=== PATIENT | female | born 1940 | race Caucasian/White ===

== ENCOUNTER → 2017-12-19 13:07 | Outpatient (CLI) | payer OTHER, SELFPAY ==
--- NOTE | 2017-12-19 | DI.MG.S_ITS ---
BILATERAL DIGITAL SCREENING MAMMOGRAM 3D/2D WITH CAD: 12/19/2017 CLINICAL: Routine screening. Family history of breast cancer. Comparison is made to exams dated: 12/12/2016 mammogram, 12/07/2015 mammogram, and 12/05/2014 mammogram - [facility]. There are scattered fibroglandular elements in both breasts. Current study was also evaluated with a Computer Aided Detection (CAD) system. No significant masses, calcifications, or other findings are seen in either breast. There has been no significant interval change. IMPRESSION: NEGATIVE There is no mammographic evidence of malignancy. A 1 year screening mammogram is recommended. This exam was interpreted at Station ID: [id number]. NOTE: For mammograms, a report in lay terms will be sent to the patient. Approximately 15% of breast malignancies will not be visualized mammographically. In the management of a palpable breast mass, a negative mammogram must not discourage biopsy of a clinically suspicious lesion. Electronically Signed By: Denae temple/mariana:12/19/2017 16:10:03 letter sent: Normal Exam ACR BI-RADS Category 1: Negative 3341F
== END ==
PROVIDERS: Family Provider Family Medicine; PCP Family Medicine; Visit Provider Family Medicine
DX: Z12.31 Encounter for screening mammogram for malignant neoplasm of breast (principal); Z80.3 Family history of malignant neoplasm of breast
CPT/HCPCS: 77063; 77067

== ENCOUNTER → 2018-02-25 09:15 | Outpatient (CLI) | payer OTHER, SELFPAY ==
[2018-02-25 09:57] LABS: Add Manual Diff / Slide Review NO; Basophils Percent Auto 1.2 % (0-2); Eosinophils Percent Auto 2.1 % (2-4); Hematocrit 44.9 % (36-46); Hemoglobin 15.1 g/dL (12.0-16.0); Lymphocytes Percent Auto 26.4 % (25-40); Mean Corpuscular HGB Conc 33.7 % (30-36); Mean Corpuscular Hemoglobin 31.9 PG (26-34); Mean Corpuscular Volume 94.7 fL (80-100); Monocytes Percent Auto 12.2 % (3-14); Neutrophils Absolute Auto 3300 /uL (3000-5900); Neutrophils Percent Auto 58.1 % (50-75); Platelet Count 175 X10^3/uL (150-400); Red Blood Cell Count 4.74 X10^6/uL (4.0-5.2); Red Cell Distribution Width 13.8 % (11.6-14.8); White Blood Cell Count 5.7 X10^3/uL (4.5-11.0)
[2018-02-25 10:14] LABS: Alanine Aminotransferase 30 IU/L (9-52); Albumin 3.9 g/dL (3.5-5.0); Albumin Globulin Ratio 1.3 (1.0-2.8); Alkaline Phosphatase 69 U/L (38-126); Aspartate Aminotransferase 32 IU/L (14-36); BUN Creatinine Ratio 38.3 (6-22); Bilirubin Total 1.1 mg/dL (0.2-1.3); Blood Urea Nitrogen 23 mg/dL (7-17); Carbon Dioxide 31 mmol/L (22-32); Chloride 103 mmol/L (98-107); Cholesterol 167 mg/dL (140-199); Estimated Glomerular Filt Rate > 60.0 mL/min (>60); Globulin 2.9 g/dL (1.7-4.1); Glucose 93 mg/dL (80-110); HDL Cholesterol 57 mg/dL (40-60); HEMOLYSIS < 15 (0-50); LDL Cholesterol Calculated 93 mg/dL (<100); Sodium 143 mmol/L (137-145); Total Protein 6.8 g/dL (6.3-8.2); Triglycerides 85 mg/dL (35-150)
[2018-02-25 10:44] LABS: TSH w/ Reflex to FT4 1.18 uIU/mL (0.47-4.68)
== END ==
PROVIDERS: Visit Provider Family Medicine
DX: E78.2 Mixed hyperlipidemia (principal); I10 Essential (primary) hypertension
CPT/HCPCS: 36415; 80053; 80061; 84443; 85025

== ENCOUNTER → 2018-12-21 11:50 | Outpatient (CLI) | payer OTHER, SELFPAY ==
--- NOTE | 2018-12-21 | DI.MG.S_ITS ---
BILATERAL DIGITAL SCREENING MAMMOGRAM 3D/2D WITH CAD: 12/21/2018 CLINICAL: Routine screening. Family history of breast cancer. Comparison is made to exams dated: 12/12/2016 mammogram, 12/19/2017 mammogram, and 12/07/2015 mammogram - [facility]. There are scattered fibroglandular elements in both breasts. Current study was also evaluated with a Computer Aided Detection (CAD) system. There are benign post operative findings in both breasts. No significant masses, calcifications, or other findings are seen in either breast. There has been no significant interval change. IMPRESSION: There is no mammographic evidence of malignancy. A 1 year screening mammogram is recommended. This exam was interpreted at Station ID: [id number]. NOTE: For mammograms, a report in lay terms will be sent to the patient. Approximately 15% of breast malignancies will not be visualized mammographically. In the management of a palpable breast mass, a negative mammogram must not discourage biopsy of a clinically suspicious lesion. Electronically Signed By: Colten pierre/mariana:12/21/2018 12:31:43 letter sent: Normal Exam ACR BI-RADS Category 2: Benign Finding(s) 3342F
== END ==
PROVIDERS: PCP Family Medicine; Visit Provider Family Medicine
DX: Z12.31 Encounter for screening mammogram for malignant neoplasm of breast (principal); Z80.3 Family history of malignant neoplasm of breast
CPT/HCPCS: 77063; 77067

== ENCOUNTER → 2019-01-28 09:43 | Outpatient (CLI) | payer OTHER, SELFPAY | PROVIDERS: PCP Family Medicine; Visit Provider Family Medicine | DX: S81.801A Unspecified open wound, right lower leg, initial encounter (principal); I10 Essential (primary) hypertension; I69.359 Hemiplegia and hemiparesis following cerebral infarction affecting unspecified side | CPT/HCPCS: 11042; 93922; 99203; 99213 ==

== ENCOUNTER → 2019-02-04 09:41 | Outpatient (CLI) | payer OTHER, SELFPAY | PROVIDERS: PCP Family Medicine; Visit Provider Family Medicine | DX: S81.801A Unspecified open wound, right lower leg, initial encounter (principal); S91.302A Unspecified open wound, left foot, initial encounter; I69.359 Hemiplegia and hemiparesis following cerebral infarction affecting unspecified side; R60.0 Localized edema | CPT/HCPCS: 11042; 99214 ==

== ENCOUNTER → 2019-02-11 08:57 | Outpatient (CLI) | payer OTHER, SELFPAY | PROVIDERS: PCP Family Medicine; Visit Provider Family Medicine | DX: S81.801A Unspecified open wound, right lower leg, initial encounter (principal); S91.302A Unspecified open wound, left foot, initial encounter; R60.0 Localized edema | CPT/HCPCS: 11042; 99213 ==

== ENCOUNTER → 2019-02-18 13:04 | Outpatient (CLI) | payer OTHER, SELFPAY | PROVIDERS: PCP Family Medicine; Visit Provider Family Medicine | DX: S81.801A Unspecified open wound, right lower leg, initial encounter (principal); I69.359 Hemiplegia and hemiparesis following cerebral infarction affecting unspecified side; I10 Essential (primary) hypertension; S91.302A Unspecified open wound, left foot, initial encounter | CPT/HCPCS: 11042; 99213 ==

== ENCOUNTER → 2019-02-26 08:54 | Outpatient (CLI) | payer OTHER, SELFPAY | PROVIDERS: PCP Family Medicine; Visit Provider Family Medicine | DX: S81.801A Unspecified open wound, right lower leg, initial encounter (principal); S91.302A Unspecified open wound, left foot, initial encounter | CPT/HCPCS: 11042; 99213 ==

== ENCOUNTER → 2019-03-05 08:41 | Outpatient (CLI) | payer OTHER, SELFPAY | PROVIDERS: PCP Family Medicine; Visit Provider Family Medicine | DX: S81.802A Unspecified open wound, left lower leg, initial encounter (principal); S81.801D Unspecified open wound, right lower leg, subsequent encounter | CPT/HCPCS: 11042 ==

== ENCOUNTER → 2019-03-12 10:09 | Outpatient (CLI) | payer OTHER, SELFPAY | PROVIDERS: PCP Family Medicine; Visit Provider Family Medicine | DX: S91.302A Unspecified open wound, left foot, initial encounter (principal) | CPT/HCPCS: 11042 ==

== ENCOUNTER → 2019-03-26 10:12 | Outpatient (CLI) | payer OTHER, SELFPAY | PROVIDERS: PCP Family Medicine; Visit Provider Family Medicine | DX: S91.302D Unspecified open wound, left foot, subsequent encounter (principal); R60.0 Localized edema | CPT/HCPCS: 99213 ==

== ENCOUNTER → 2020-01-11 16:38 | Outpatient (CLI) | payer OTHER, SELFPAY ==
--- NOTE | 2020-01-11 | DI.MG.S_ITS ---
BILATERAL DIGITAL SCREENING MAMMOGRAM 3D/2D WITH CAD: 01/11/2020 CLINICAL: Routine screening. Family history of breast cancer. Comparison is made to exams dated: 12/21/2018 mammogram, 12/19/2017 mammogram, 12/12/2016 mammogram, 12/07/2015 mammogram, 12/05/2014 mammogram, and 12/02/2013 mammogram - [facility]. There are scattered fibroglandular elements in both breasts. Current study was also evaluated with a Computer Aided Detection (CAD) system. There are benign post operative findings in both breasts. No significant masses, calcifications, or other findings are seen in either breast. There has been no significant interval change. IMPRESSION: BENIGN There is no mammographic evidence of malignancy. A 1 year screening mammogram is recommended. This exam was interpreted at Station ID: [id number]. NOTE: For mammograms, a report in lay terms will be sent to the patient. Approximately 15% of breast malignancies will not be visualized mammographically. In the management of a palpable breast mass, a negative mammogram must not discourage biopsy of a clinically suspicious lesion. Electronically Signed By: Tristan alonso/mariana:01/11/2020 17:32:19 letter sent: Normal Exam ACR BI-RADS Category 2: Benign Finding(s) 3342F
== END ==
PROVIDERS: PCP Family Medicine; Referring Provider Family Medicine; Visit Provider Family Medicine
DX: Z12.31 Encounter for screening mammogram for malignant neoplasm of breast (principal); Z80.3 Family history of malignant neoplasm of breast
CPT/HCPCS: 77063; 77067

== ENCOUNTER → 2020-03-09 07:38 | Outpatient (CLI) | payer OTHER, SELFPAY ==
[2020-03-09 09:07] LABS: Add Manual Diff / Slide Review NO; Basophils Absolute Auto 100 /uL (0-100); Basophils Percent Auto 1.2 % (0-2); Eosinophils Absolute Auto 200 /uL (0-450); Eosinophils Percent Auto 2.6 % (2-4); Hematocrit 45.6 % (36-46); Hemoglobin 15.4 g/dL (12.0-16.0); Lymphocytes Absolute Auto 1800 /uL (1100-4500); Lymphocytes Percent Auto 30.1 % (25-40); Mean Corpuscular HGB Conc 33.9 % (30-36); Mean Corpuscular Hemoglobin 32.5 PG (26-34); Mean Corpuscular Volume 96.1 fL (80-100); Monocytes Absolute Auto 1000 /uL (0-900); Monocytes Percent Auto 16.5 % (3-14); Neutrophils Absolute Auto 3000 /uL (1500-7000); Neutrophils Percent Auto 49.6 % (50-75); Platelet Count 175 X10^3/uL (150-400); Red Blood Cell Count 4.74 X10^6/uL (4.0-5.2); Red Cell Distribution Width 13.8 % (11.6-14.8)
[2020-03-09 09:18] LABS: Alanine Aminotransferase 22 IU/L (<35); Albumin 3.9 g/dL (3.5-5.0); Albumin Globulin Ratio 1.4 (1.0-2.8); Alkaline Phosphatase 73 U/L (38-126); Aspartate Aminotransferase 31 IU/L (14-36); BUN Creatinine Ratio 28.4 (6-22); Bilirubin Total 1.6 mg/dL (0.2-1.3); Blood Urea Nitrogen 21 mg/dL (7-17); Calcium 9.4 mg/dL (8.4-10.2); Carbon Dioxide 32 mmol/L (22-32); Chloride 99 mmol/L (98-107); Estimated Glomerular Filt Rate > 60.0 mL/min (>60); Globulin 2.8 g/dL (1.7-4.1); Glucose 95 mg/dL (80-110); HEMOLYSIS < 15 (0-50); Sodium 136 mmol/L (137-145); Total Protein 6.7 g/dL (6.3-8.2)
[2020-03-09 09:39] LABS: Creatinine Urine Random 56.3 mg/dL
[2020-03-09 09:43] LABS: Microalbumi Creatinin Ratio Ur 15.9 ug/mg CR (<30); Microalbumin Urine Random 0.9 mg/dL (0-1.6)
== END ==
PROVIDERS: PCP Family Medicine; Referring Provider Family Medicine; Visit Provider Family Medicine
DX: I48.91 Unspecified atrial fibrillation (principal); Z79.01 Long term (current) use of anticoagulants
CPT/HCPCS: 36415; 80053; 82043; 82570; 85025

== ENCOUNTER → 2020-05-22 15:29 | Outpatient (CLI) | payer OTHER, SELFPAY ==
[2020-05-22 16:08] LABS: COVID19 -Nasal RAPID Negative (Negative)
== END ==
PROVIDERS: PCP Family Medicine; Visit Provider Physician Assistant
DX: Z11.59 Encounter for screening for other viral diseases (principal)
CPT/HCPCS: 87635; C9803

== ENCOUNTER → 2021-01-15 10:52 | Outpatient (CLI) | payer OTHER, SELFPAY ==
--- NOTE | 2021-01-15 | DI.MG.S_ITS ---
BILATERAL DIGITAL SCREENING MAMMOGRAM 3D/2D WITH CAD: 01/15/2021 CLINICAL: Routine screening. Family history of breast cancer. Comparison is made to exams dated: 01/11/2020 mammogram, 12/21/2018 mammogram, and 12/19/2017 mammogram - [facility]. There are scattered fibroglandular elements in both breasts. Current study was also evaluated with a Computer Aided Detection (CAD) system. There are benign post operative findings in both breasts. No significant masses, calcifications, or other findings are seen in either breast. There has been no significant interval change. IMPRESSION: BENIGN There is no mammographic evidence of malignancy. A 1 year screening mammogram is recommended. This exam was interpreted at Station ID: [id number]. NOTE: For mammograms, a report in lay terms will be sent to the patient. Approximately 15% of breast malignancies will not be visualized mammographically. In the management of a palpable breast mass, a negative mammogram must not discourage biopsy of a clinically suspicious lesion. Electronically Signed By: Colten pierre/mariana:01/15/2021 11:31:52 letter sent: Normal Exam ACR BI-RADS Category 2: Benign Finding(s) 3342F
== END ==
PROVIDERS: PCP Family Medicine; Referring Provider Family Medicine; Visit Provider Family Medicine
DX: Z12.31 Encounter for screening mammogram for malignant neoplasm of breast (principal); Z80.3 Family history of malignant neoplasm of breast
CPT/HCPCS: 77063; 77067

== ENCOUNTER → 2021-03-30 09:20 | Outpatient (CLI) | payer OTHER, SELFPAY ==
[2021-04-01 11:16] LABS: COVID19 Sendout Positive (Not Detect)
== END ==
PROVIDERS: PCP Family Medicine; Visit Provider Nurse Practitioner
DX: U07.1 COVID-19 (principal); Z20.822 Contact with and (suspected) exposure to COVID-19
CPT/HCPCS: 87635

== ENCOUNTER → 2022-01-18 16:14 | Outpatient (CLI) | payer OTHER, SELFPAY ==
--- NOTE | 2022-01-18 16:19 | DI.MG.S_ITS ---
BILATERAL DIGITAL SCREENING MAMMOGRAM 3D/2D WITH CAD: 01/18/2022 CLINICAL: Routine screening. Family history of breast cancer. Comparison is made to exams dated: 01/15/2021 mammogram, 01/11/2020 mammogram, 12/21/2018 mammogram, and 12/19/2017 mammogram - [facility]. There are scattered fibroglandular elements in both breasts. Current study was also evaluated with a Computer Aided Detection (CAD) system. There are benign post operative findings in both breasts. No significant masses, calcifications, or other findings are seen in either breast. There has been no significant interval change. IMPRESSION: BENIGN There is no mammographic evidence of malignancy. A 1 year screening mammogram is recommended. Based on the Tyrer Cuzick model (a risk assessment model) the patient's lifetime risk is 0.4% and her 10 year risk is 0.0%. According to the ACR, ACS, and NCCN guidelines, an annual breast MRI exam along with mammogram is recommended if the patient's lifetime risk is 20% or greater. This exam was interpreted at Station ID: [id number]. NOTE: For mammograms, a report in lay terms will be sent to the patient. Approximately 15% of breast malignancies will not be visualized mammographically. In the management of a palpable breast mass, a negative mammogram must not discourage biopsy of a clinically suspicious lesion. Electronically Signed By: Tristan alonso/mariana:01/19/2022 16:26:00 letter sent: Normal Exam ACR BI-RADS Category 2: Benign Finding(s) 3342F
== END ==
PROVIDERS: PCP Family Medicine; Referring Provider Family Medicine; Visit Provider Family Medicine
DX: Z12.31 Encounter for screening mammogram for malignant neoplasm of breast (principal); Z80.3 Family history of malignant neoplasm of breast
CPT/HCPCS: 77063; 77067

== ENCOUNTER → 2022-10-07 11:09 | Outpatient (CLI) | payer OTHER, SELFPAY ==
[2022-10-07 12:26] LABS: INR 4.4 (0.9-1.3); Prothrombin Time 50.9 SECONDS (10.1-12.7)
== END ==
PROVIDERS: PCP Family Medicine; Referring Provider Family Medicine; Visit Provider Family Medicine
DX: Z79.01 Long term (current) use of anticoagulants (principal); I63.9 Cerebral infarction, unspecified
CPT/HCPCS: 36415; 85610

== ENCOUNTER → 2022-10-09 09:58 | Outpatient (CLI) | payer OTHER, SELFPAY ==
[2022-10-09 11:53] LABS: INR 2.3 (0.9-1.3); Prothrombin Time 26.5 SECONDS (10.1-12.7)
== END ==
PROVIDERS: PCP Family Medicine; Referring Provider Family Medicine; Visit Provider Family Medicine
DX: I48.91 Unspecified atrial fibrillation (principal); Z79.01 Long term (current) use of anticoagulants
CPT/HCPCS: 36415; 85610

== ENCOUNTER → 2022-11-15 10:08 | Outpatient (CLI) | payer OTHER, SELFPAY ==
[2022-11-15 11:28] LABS: INR 1.9 (0.9-1.3); Prothrombin Time 21.9 SECONDS (10.1-12.7)
== END ==
PROVIDERS: PCP Family Medicine; Referring Provider Family Medicine; Visit Provider Family Medicine
DX: I48.0 Paroxysmal atrial fibrillation (principal); Z79.01 Long term (current) use of anticoagulants
CPT/HCPCS: 36415; 85610

== ENCOUNTER → 2023-01-20 14:04 | Outpatient (CLI) | payer OTHER, SELFPAY ==
--- NOTE | 2023-01-20 | DI.MG.S_ITS ---
BILATERAL DIGITAL SCREENING MAMMOGRAM 3D/2D WITH CAD: 01/20/2023 CLINICAL: Routine screening. Family history of breast cancer. Comparison is made to exams dated: 01/18/2022 mammogram, 01/15/2021 mammogram, and 01/11/2020 mammogram - [facility]. There are scattered areas of fibroglandular density in both breasts (category b / 25%-50% glandular tissue). Current study was also evaluated with a Computer Aided Detection (CAD) system. No significant masses, calcifications, or other findings are seen in either breast. There has been no significant interval change. IMPRESSION: NEGATIVE There is no mammographic evidence of malignancy. A 1 year screening mammogram is recommended. Based on the Tyrer Cuzick model (a risk assessment model) the patient's lifetime risk is 0.2% and her 10 year risk is 0.0%. According to the ACR, ACS, and NCCN guidelines, an annual breast MRI exam along with mammogram is recommended if the patient's lifetime risk is 20% or greater. This exam was interpreted at Station ID: [id number]. NOTE: For mammograms, a report in lay terms will be sent to the patient. Approximately 15% of breast malignancies will not be visualized mammographically. In the management of a palpable breast mass, a negative mammogram must not discourage biopsy of a clinically suspicious lesion. Electronically Signed By: Denae temple/mariana:01/20/2023 15:01:13 letter sent: Normal Exam ACR BI-RADS Category 1: Negative 3341F
== END ==
PROVIDERS: PCP Family Medicine; Referring Provider Family Medicine; Visit Provider Family Medicine
DX: Z12.31 Encounter for screening mammogram for malignant neoplasm of breast (principal); Z80.3 Family history of malignant neoplasm of breast
CPT/HCPCS: 77063; 77067

== ENCOUNTER → 2023-04-05 13:47 | Outpatient (CLI) | payer OTHER, SELFPAY ==
--- NOTE | 2023-04-05 13:49 | DI.RAD.S_ITS ---
PROCEDURE: XR RIBS RT MIN 3V W CXR 1V INDICATIONS: R posterior rib pain after fall TECHNIQUE: 2 views of the right ribs were acquired, along with a single view chest. COMPARISON: None. FINDINGS: Surgical changes and devices: None. Bones and chest wall: No fractures or dislocations. No suspicious bony lesions. Overlying soft tissues appear unremarkable. Lungs and pleura: No pleural effusions or pneumothorax. Lungs appear clear. Mediastinum: Mediastinal contours appear normal. Mild cardiomegaly. IMPRESSION: No evidence of displaced right rib fracture. No evidence acute pulmonary process. Mild cardiomegaly. Dictated by: Miguelito Reese M.D. on 04/05/2023 at 15:40 Approved by: Miguelito Reese M.D. on 04/05/2023 at 15:43
== END ==
PROVIDERS: PCP Family Medicine; Referring Provider Physician Assistant Medical; Visit Provider Physician Assistant Medical
DX: R07.81 Pleurodynia (principal); I51.7 Cardiomegaly
CPT/HCPCS: 71101

== ENCOUNTER → 2023-04-22 07:04 | Outpatient (CLI) | payer OTHER, SELFPAY ==
[2023-04-22 08:54] LABS: Add Manual Diff / Slide Review NO; Basophils Absolute Auto 100 /uL (0-100); Basophils Percent Auto 1.1 % (0-2); Eosinophils Absolute Auto 100 /uL (0-450); Eosinophils Percent Auto 2.3 % (2-4); Hematocrit 43.3 % (36-46); Hemoglobin 14.8 g/dL (12.0-16.0); Lymphocytes Absolute Auto 1500 /uL (1100-4500); Lymphocytes Percent Auto 27.9 % (25-40); Mean Corpuscular HGB Conc 34.1 % (30-36); Mean Corpuscular Hemoglobin 33.1 PG (26-34); Monocytes Absolute Auto 700 /uL (0-900); Monocytes Percent Auto 12.2 % (3-14); Neutrophils Absolute Auto 3100 /uL (1500-7000); Neutrophils Percent Auto 56.5 % (50-75); Platelet Count 199 X10^3/uL (150-400); Red Blood Cell Count 4.47 X10^6/uL (4.0-5.2); Red Cell Distribution Width 13.2 % (11.6-14.8); White Blood Cell Count 5.5 X10^3/uL (4.5-11.0)
[2023-04-22 09:22] LABS: Alanine Aminotransferase 21 IU/L (<35); Albumin 3.6 g/dL (3.5-5.0); Albumin Globulin Ratio 1.3 (1.0-2.8); Alkaline Phosphatase 138 U/L (38-126); Aspartate Aminotransferase 32 IU/L (14-36); BUN Creatinine Ratio 24.7 (6-22); Bilirubin Total 1.4 mg/dL (0.2-1.3); Blood Urea Nitrogen 18 mg/dL (7-17); Calcium 9.7 mg/dL (8.4-10.2); Carbon Dioxide 31 mmol/L (22-32); Chloride 102 mmol/L (98-107); Cholesterol 143 mg/dL (140-199); Estimated Glomerular Filt Rate > 60 mL/min (>60); Globulin 2.8 g/dL (1.7-4.1); Glucose 99 mg/dL (80-110); HDL Cholesterol 64 mg/dL (40-60); HEMOLYSIS < 15 (0-50); LDL Cholesterol Calculated 64 mg/dL (<100); Potassium 4.3 mmol/L (3.4-5.1); Sodium 138 mmol/L (137-145); Total Protein 6.4 g/dL (6.3-8.2); Triglycerides 76 mg/dL (35-150)
[2023-04-22 11:21] LABS: Creatinine Urine Random 109.4 mg/dL
[2023-04-22 11:28] LABS: Microalbumin Urine Random < 0.6 mg/dL (0-1.6)
== END ==
PROVIDERS: PCP Family Medicine; Referring Provider Family Medicine; Visit Provider Family Medicine
DX: I10 Essential (primary) hypertension (principal); Z79.01 Long term (current) use of anticoagulants
CPT/HCPCS: 36415; 80053; 80061; 82043; 82570; 85025

== ENCOUNTER → 2024-02-21 11:12 | Outpatient (CLI) | payer OTHER, SELFPAY ==
--- NOTE | 2024-02-21 11:15 | DI.MG.S_ITS ---
BILATERAL DIGITAL SCREENING MAMMOGRAM 3D/2D WITH CAD: 02/21/2024 CLINICAL: Routine screening. Family history of breast cancer. Comparison is made to exams dated: 01/15/2021 mammogram, 01/18/2022 mammogram, and 01/20/2023 mammogram - [facility]. There are scattered areas of fibroglandular density (category b / 25%-50% glandular tissue). Current study was also evaluated with a Computer Aided Detection (CAD) system. There are benign calcifications in the right breast. No significant masses, calcifications, or other findings are seen in either breast. There has been no significant interval change. IMPRESSION: BENIGN There is no mammographic evidence of malignancy. A 1 year screening mammogram is recommended. This exam was interpreted at Station ID: [id number]. NOTE: For mammograms, a report in lay terms will be sent to the patient. Approximately 15% of breast malignancies will not be visualized mammographically. In the management of a palpable breast mass, a negative mammogram must not discourage biopsy of a clinically suspicious lesion. Electronically Signed By: Elizabeth gonzalez/mariana:02/23/2024 17:06:06 letter sent: Normal Exam ACR BI-RADS Category 2: Benign 3342F
== END ==
LOC: MAMMO 11:14
PROVIDERS: PCP Family Medicine; Referring Provider Family Medicine; Visit Provider Family Medicine
DX: Z12.31 Encounter for screening mammogram for malignant neoplasm of breast (principal); Z80.3 Family history of malignant neoplasm of breast
CPT/HCPCS: 77063; 77067

== ENCOUNTER → 2024-04-23 09:43 | Outpatient (CLI) | payer OTHER, SELFPAY ==
[2024-04-23 11:01] LABS: Add Manual Diff / Slide Review NO; Basophils Absolute Auto 100 /uL (0-100); Basophils Percent Auto 1.4 % (0-2); Eosinophils Absolute Auto 100 /uL (0-450); Eosinophils Percent Auto 1.6 % (2-4); Hematocrit 44.5 % (36-46); Hemoglobin 15.1 g/dL (12.0-16.0); Lymphocytes Absolute Auto 1100 /uL (1100-4500); Lymphocytes Percent Auto 19.5 % (25-40); Mean Corpuscular HGB Conc 33.9 % (30-36); Mean Corpuscular Hemoglobin 33.5 PG (26-34); Mean Corpuscular Volume 98.8 fL (80-100); Monocytes Absolute Auto 700 /uL (0-900); Monocytes Percent Auto 12.8 % (3-14); Neutrophils Absolute Auto 3700 /uL (1500-7000); Neutrophils Percent Auto 64.7 % (50-75); Platelet Count 186 X10^3/uL (150-400); Red Blood Cell Count 4.51 X10^6/uL (4.0-5.2); Red Cell Distribution Width 13.1 % (11.6-14.8); White Blood Cell Count 5.8 X10^3/uL (4.5-11.0)
[2024-04-23 11:31] LABS: Alanine Aminotransferase 25 IU/L (<35); Albumin 4.2 g/dL (3.5-5.0); Albumin Globulin Ratio 1.7 (1.0-2.8); Alkaline Phosphatase 73 U/L (38-126); Aspartate Aminotransferase 32 IU/L (14-36); Bilirubin Total 1.5 mg/dL (0.2-1.3); Blood Urea Nitrogen 12 mg/dL (7-17); Calcium 9.4 mg/dL (8.4-10.2); Carbon Dioxide 30 mmol/L (22-32); Chloride 96 mmol/L (98-107); Cholesterol 141 mg/dL (140-199); Estimated Glomerular Filt Rate > 60 mL/min (>60); Globulin 2.5 g/dL (1.7-4.1); Glucose 94 mg/dL (80-110); HDL Cholesterol 70 mg/dL (40-60); HEMOLYSIS < 15 (0-50); LDL Cholesterol Calculated 53 mg/dL (<100); Potassium 3.5 mmol/L (3.4-5.1); Sodium 133 mmol/L (137-145); Total Protein 6.7 g/dL (6.3-8.2); Triglycerides 90 mg/dL (35-150)
[2024-04-23 12:00] LABS: TSH w/ Reflex to FT4 2.07 uIU/mL (0.47-4.68)
== END ==
LOC: LAB 09:44
PROVIDERS: PCP Family Medicine; Referring Provider Family Medicine; Visit Provider Family Medicine
DX: E78.5 Hyperlipidemia, unspecified (principal); I10 Essential (primary) hypertension; I48.0 Paroxysmal atrial fibrillation; Z79.899 Other long term (current) drug therapy; B02.29 Other postherpetic nervous system involvement
CPT/HCPCS: 36415; 80053; 80061; 84443; 85025

== ENCOUNTER → 2025-02-25 09:49 | Outpatient (CLI) | payer OTHER, SELFPAY ==
--- NOTE | 2025-02-25 09:51 | DI.MG.S_ITS ---
MM screening mammo BI: 02/25/2025. BI-RADS: 1 CLINICAL: 84-year old female for bilateral screening mammogram. No Tyrer-Cuzick risk score calculation due to patient's age being over 85 years old. Current reported family history of breast cancer: mother. PRIOR EXAMS 02/21/2024, 01/20/2023, 01/18/2022, 01/15/2021. MAMMOGRAPHY TECHNIQUE: 2D and 3D (tomosynthesis) digital mammographic views obtained, with additional images as needed for full coverage. Current study was also evaluated with a Computer Aided Detection (CAD) system. DENSITY B. There are scattered areas of fibroglandular density. MAMMOGRAPHY FINDINGS Bilateral: No suspicious mass, asymmetry, microcalcification, or other abnormality seen. IMPRESSION: * No evidence of malignancy. RECOMMENDATIONS Bilateral * Annual screening mammography. OVERALL ASSESSMENT CATEGORY BI-RADS-1: Negative. The [employer] recommends annual screening mammography beginning at age 40 for women with average risk of breast cancer. ELECTRONICALLY SIGNED: Marisel Doran M.D. on 02/25/2025 at 09:22:08 PM PT Interpreting Station ID: [id number]
== END ==
LOC: MAMMO 09:51
PROVIDERS: PCP Family Medicine; Referring Provider Family Medicine; Visit Provider Family Medicine
DX: Z12.31 Encounter for screening mammogram for malignant neoplasm of breast (principal); Z80.3 Family history of malignant neoplasm of breast
CPT/HCPCS: 77063; 77067

== ENCOUNTER → 2025-03-10 12:30 | Outpatient (CLI) | payer OTHER, SELFPAY ==
[2025-03-10 13:58] LABS: Alanine Aminotransferase 21 IU/L (<35); Albumin 3.7 g/dL (3.5-5.0); Albumin Globulin Ratio 1.5 (1.0-2.8); Alkaline Phosphatase 101 U/L (38-126); Blood Urea Nitrogen 15 mg/dL (7-17); Calcium 9.1 mg/dL (8.4-10.2); Carbon Dioxide 28 mmol/L (22-32); Chloride 92 mmol/L (98-107); Cholesterol 123 mg/dL (140-199); Estimated Glomerular Filt Rate > 60 mL/min (>60); Globulin 2.5 g/dL (1.7-4.1); Glucose 138 mg/dL (70-99); HDL Cholesterol 60 mg/dL (40-60); HEMOLYSIS < 15 (0-50); Potassium 3.9 mmol/L (3.4-5.1); Sodium 128 mmol/L (137-145); Total Protein 6.2 g/dL (6.3-8.2); Triglycerides 94 mg/dL (35-150)
[2025-03-10 14:47] LABS: Microalbumi Creatinin Ratio Ur 35.0 ug/mg CR (<30)
== END ==
PROVIDERS: PCP Family Medicine; Referring Provider Family Medicine; Visit Provider Family Medicine
DX: I10 Essential (primary) hypertension (principal)
CPT/HCPCS: 36415; 80053; 80061; 82043; 82570

== ENCOUNTER → 2025-03-15 09:01 | Outpatient (CLI) | payer OTHER, SELFPAY ==
--- NOTE | 2025-03-15 09:02 | DI.RAD.S_ITS ---
PROCEDURE: XR LUMBAR SPINE 2-3V INDICATIONS: lower back pain TECHNIQUE: 3 views of the lumbar spine were acquired. COMPARISON: None. FINDINGS: Lumbar spine curvature and alignment: Mild leftward curve lower thoracic and lumbar spine appreciated. Bones: Mild chronic wedging T10 through L4 vertebral bodies. Disc spaces: Severe degenerative disc disease seen at T10-11 through L5-S1 . There is also severe facet degeneration at L2-3 through L5-S1. Soft tissues: No soft tissue swelling, calcification or mass. IMPRESSION: Multilevel degeneration. Minimal chronic compression fractures T10 through L4 Dictated by: Parminder Brantley M.D. on 03/16/2025 at 9:57 Approved by: Parminder Brantley M.D. on 03/16/2025 at 10:00
== END ==
PROVIDERS: PCP Family Medicine; Referring Provider Family Medicine; Visit Provider Family Medicine
DX: M51.34 Other intervertebral disc degeneration, thoracic region (principal); M51.360 Other intervertebral disc degeneration, lumbar region with discogenic back pain only; M51.370 Other intervertebral disc degeneration, lumbosacral region with discogenic back pain only; M47.816 Spondylosis without myelopathy or radiculopathy, lumbar region; M47.817 Spondylosis without myelopathy or radiculopathy, lumbosacral region
CPT/HCPCS: 72100

== ENCOUNTER → 2025-03-19 10:22 | Outpatient (CLI) | payer OTHER, SELFPAY ==
[2025-03-19 11:33] LABS: Hemoglobin A1C% w Est Avg Glu 5.2 % (4.0-6.0)
== END ==
PROVIDERS: PCP Family Medicine; Referring Provider Family Medicine; Visit Provider Family Medicine
DX: E78.5 Hyperlipidemia, unspecified (principal); I10 Essential (primary) hypertension
CPT/HCPCS: 36415; 83036

== ENCOUNTER 2025-03-30 15:57 | Emergency (ER) | payer OTHER, SELFPAY ==
[2025-03-30 16:08] VITALS: BP 142/76; PULSE 98; RESP 16; TEMP 36.1; O2SAT 100; BMI 20.9
[2025-03-30 16:15] VITALS: BP 142/76; PULSE 89; RESP 16; O2SAT 98
--- NOTE | 2025-03-30 16:15 | DI.RAD.S_ITS ---
PROCEDURE: XR HIP W PEL IF DONE LT 2V INDICATIONS: Fall/pain TECHNIQUE: AP pelvis with lateral view(s) of the left hip(s). COMPARISON: None. FINDINGS: Bones: Acute left anterior column and inferior pubic ramus fracture, questionable avulsion fracture of the medial right superior pubic ramus. No left femoral fracture. Diffuse osseous demineralization. Degenerative disc disease in the inferior lumbar spine. Soft tissues: The visualized bowel gas pattern is normal. No suspicious soft tissue calcifications. IMPRESSION: Findings concerning for acute both column fracture of the left acetabulum and inferior obturator ring. Consider further evaluation with pelvic CT. Questionable avulsion fracture of the right medial superior pubic ramus. REFERENCE TEXT DELETE FROM FINAL REPORT Types of femoral neck fractures: subcapital, transcervical, basicervical, intertrochanteric, subtrochanteric. [place] classification system for periprosthetic femoral fractures: * [place] A: trochanteric fractures; subclassify as lesser or greater trochanter. * [place] B: femoral stem including medial buttress to just distal to stem tip. o B1: stable prosthesis, quality bone stock. o B2: loose prosthesis, quality bone stock. o B3: unstable prosthesis, poor quality bone stock. Describe location of bone loss: trochanteric, proximal stem, entire stem, or extensive. * [place] C: well distal to femoral stem, at least 4-5 cm. Dictated by: Brooks Carbajal M.D. on 03/30/2025 at 16:40 Approved by: Brooks Carbajal M.D. on 03/30/2025 at 16:43
--- NOTE | 2025-03-30 16:16 | ED.FALL ---
HPI - Fall General Chief Complaint: Fall Stated Complaint: Fall Left Hip Pain Time Seen by Provider: 03/30/25 16:13 Source: EMS Mode of arrival: EMS History of Present Illness HPI Narrative: Patient brought in by ambulance for ground level fall. Patient is on Pradaxa. However did not hit her head. Complains of only left hip pain. It is shortened and externally rotated with the left leg. Patient in no distress. Primary care is Dr. Webster. No prior history of left hip surgery. No numbness tingling or weakness. Patient states she was taking out the garbage and tripped and fell. Medications Fish Oil 1,000 mg PO QDAY #0 tabs 03/04/16 [History Confirmed 03/15/25] latanoprost 0.005 % eye drops EYE-RIGHT 03/31/19 [History Confirmed 03/15/25] dabigatran etexilate 150 mg capsule (Pradaxa) 150 mg PO BID #180 caps 04/23/24 [Rx Confirmed 03/15/25] hydrochlorothiazide 25 mg tablet 25 mg PO DAILY #180 tabs 04/23/24 [Rx Confirmed 03/15/25] pregabalin 50 mg capsule 50 mg PO BID #90 caps 10/22/24 [Rx Confirmed 03/15/25] metoprolol succinate 25 mg tablet,extended release 24 hr See Rx Instructions .Route .COMPLEX #90 tabs 12/21/24 [Rx Confirmed 03/15/25] temazepam 15 mg capsule 30 mg (2 x 15 mg) PO BID PRN anxiety #60 caps 12/22/24 [Rx Confirmed 03/15/25] fluorouracil 5 % topical cream 1 applic topical BID 12/24/24 [History Confirmed 03/15/25] timolol maleate 0.5 % eye drops drp EYE-BOTH 12/24/24 [History Confirmed 03/15/25] atorvastatin 10 mg tablet See Rx Instructions .Route .COMPLEX #180 tabs 03/07/25 [Rx Confirmed 03/15/25] Medical History (Updated 02/28/25 @ 10:58 by Elma Webster MD) Stroke Hard of hearing Glaucoma Macular degeneration Precancerous skin lesion (~1988) Basal cell carcinoma (BCC) of right forehead (2011) Cerebellar stroke (02/2017) Mitral regurgitation Atrial fibrillation (2013) Hypertension Colon polyps (~10/2005) Chicken pox Measles Mumps Depression Hayfever (~1988) Related Data Home Medications ?Medication ?Instructions ?Recorded ?Confirmed Fish Oil 1,000 mg PO QDAY #0 tabs 03/04/16 03/15/25 latanoprost 0.005 % eye drops EYE-RIGHT 03/31/19 03/15/25 fluorouracil 5 % topical cream 1 applic topical BID 12/24/24 03/15/25 timolol maleate 0.5 % eye drops drp EYE-BOTH 12/24/24 03/15/25 Previous Rx's ?Medication ?Instructions ?Recorded dabigatran etexilate 150 mg 150 mg PO BID #180 caps 04/23/24 capsule (Pradaxa) pregabalin 50 mg capsule 50 mg PO BID #90 caps 10/22/24 metoprolol succinate 25 mg See Rx Instructions .Route 12/21/24 tablet,extended release 24 hr .COMPLEX #90 tabs temazepam 15 mg capsule 30 mg (2 x 15 mg) PO BID PRN 12/22/24 anxiety #60 caps atorvastatin 10 mg tablet See Rx Instructions .Route 03/07/25 .COMPLEX #180 tabs hydrochlorothiazide 25 mg tablet 25 mg PO DAILY #180 tabs 03/30/25 Allergies Allergy/AdvReac Type Severity Reaction Status Date / Time Penicillins Allergy Mild Verified 03/15/25 08:45 Review of Systems Review of Systems Narrative: GENERAL: Negative chills, fatigue, malaise, fever, sweats. HEENT: Negative sinus pain, ear pain, sore throat RESPIRATORY: Negative dyspnea, cough CARDIOVASCULAR: Negative chest pain, palpitations GASTROINTESTINAL: Negative vomiting, nausea, abdominal pain : Negative dysuria, frequency, hematuria MUSCULOSKELETAL: Positive muscle or bony pain SKIN: Negative rash, skin lesions NEUROLOGIC: Negative weakness, numbness ROS Unobtainable: All systems reviewed & are unremarkable except as noted in HPI and below Patient History Medical History (Updated 03/30/25 @ 16:50 by Jani Chua MD) Stroke Hard of hearing Glaucoma Macular degeneration Precancerous skin lesion (~1988) Basal cell carcinoma (BCC) of right forehead (2011) Cerebellar stroke (02/2017) Mitral regurgitation Atrial fibrillation (2013) Hypertension Colon polyps (~10/2005) Chicken pox Measles Mumps Depression Hayfever (~1988) Surgical History History of bilateral tubal ligation (~1978) Status post Mohs micrographic surgery for basal cell carcinoma (BCC) (2009) Status post Mohs micrographic surgery for basal cell carcinoma (BCC) (11/2011) Family History Brother No problems noted. Son No problems noted. Daughter Seasonal allergies Father Alzheimer's dementia Mother Breast cancer Parkinson's disease Sister No problems noted. Social History marital status: number of children: 2 household members: spouse lives independently: Yes caregiver/support person: No housing: house pets and animals: Yes education level: college other: bike,hike,aerobics,yoga seatbelt use: always helmet use: Yes water heater temp set < 120 deg: Yes working smoke detector in home: Yes fire extinguisher in home: Yes carbon monox detector in home: No firearms in home: No Smoking Status: Never smoker second hand exposure: No alcohol intake: current substance use type: does not use during the past year weight has: remained stable daily servings fruits/ve-4 caffeine: Yes eating out: 1-3 times/week frequency: 5-6 times per week duration: 60-90 minutes/day Smoking Status: Never smoker Exam Narrative Exam Narrative: GENERAL: in no distress, not toxic not dyspneic HEAD: Normocephalic. EYES: Pupils equal round ENT: Mucous membranes moist. NECK: Trachea midline. CARDIOVASCULAR: Regular rate and rhythm RESPIRATORY: Clear to auscultation. Breath sounds equal bilaterally. No wheezes, rales, or rhonchi. EXTREMITIES: Examination left lower extremity foot warm soft pink strong pedal pulse. Leg is shortened and externally rotated. Limited range of motion at the left hip due to pain. Nontender knee and ankle. NEURO: AOx4. Clear speech SKIN: Warm and dry PSYCH: Not anxious, is cooperative Initial Vital Signs Initial Vital Signs: Vital Signs Temperature 96.9 F L 03/30/25 16:08 Pulse Rate 98 H 03/30/25 16:08 Respiratory Rate 16 03/30/25 16:08 Blood Pressure 142/76 H 03/30/25 16:08 Pulse Oximetry 100 03/30/25 16:08 Oxygen Delivery Method Room Air 03/30/25 16:08 Course Orders Ordered: Discontinued Medications Sodium Chloride (Normal Saline 0.9%) 1,000 mls @ 1,000 mls/hr IV BOLUS ONE Stop: 03/30/25 20:10 Last Admin: 03/30/25 19:13 Dose: 1,000 mls/hr Documented By: SHRUTI Acetaminophen (Ofirmev) 1,000 mg in 100 mls @ 400 mls/hr IV NOW ONE Stop: 03/30/25 20:36 Morphine Sulfate (Morphine 4 Mg/Ml Inj) 4 mg IV NOW ONE Stop: 03/30/25 16:16 Last Admin: 03/30/25 17:10 Dose: 4 mg Documented By: EDEL Ondansetron HCl (Ondansetron 4 Mg/2 Ml Inj) 4 mg IV NOW ONE Stop: 03/30/25 16:16 Last Admin: 03/30/25 17:10 Dose: 4 mg Documented By: EDEL Vital Signs Vital signs: Vital Signs - 8 hr 03/30/25 16:08 Temperature 96.9 F L Pulse Rate 98 H Respiratory Rate 16 Blood Pressure 142/76 H Pulse Oximetry 100 Oxygen Delivery Method Room Air MDM - Fall Lab Data 03/30/25 17:10 03/30/25 17:10 Labs: Lab Results 03/30/25 Range/Units 17:10 WBC 14.3 H (4.5-11.0) X10^3/uL RBC 4.28 (4.0-5.2) X10^6/uL Hgb 14.0 (12.0-16.0) g/dL Hct 41.1 (36-46) % MCV 96.1 (80-100) fL MCH 32.8 (26-34) PG MCHC 34.1 (30-36) % RDW 14.9 H (11.6-14.8) % Plt Count 276 (150-400) X10^3/uL Neut % (Auto) 87.1 H (50-75) % Lymph % (Auto) 5.0 L (25-40) % Glasscock % (Auto) 6.7 (3-14) % Eos % (Auto) 0.7 L (2-4) % Baso % (Auto) 0.5 (0-2) % Neut # (Auto) 33191 H (2289-8666) /uL Lymph # (Auto) 700 L (4504-5667) /uL Glasscock # (Auto) 1000 H (0-900) /uL Eos # (Auto) 100 (0-450) /uL Baso # (Auto) 100 (0-100) /uL PT 14.0 H (9.4-12.5) SECONDS INR 1.2 (0.9-1.3) APTT 41 H (25.1-36.5) SECONDS Sodium 131 L (137-145) mmol/L Potassium 3.7 (3.4-5.1) mmol/L Chloride 95 L (98-107) mmol/L Carbon Dioxide 28 (22-32) mmol/L BUN 17 (7-17) mg/dL Creatinine 0.50 L (0.52-1.04) mg/dL Estimated GFR > 60 (>60) mL/min BUN/Creatinine Ratio 34.0 H (6-22) Glucose 131 H (70-99) mg/dL Calcium 9.4 (8.4-10.2) mg/dL Total Bilirubin 1.1 (0.2-1.3) mg/dL AST 34 (14-36) IU/L ALT 37 H (<35) IU/L Alkaline Phosphatase 135 H (38-126) U/L Total Protein 7.1 (6.3-8.2) g/dL Albumin 4.2 (3.5-5.0) g/dL Globulin 2.9 (1.7-4.1) g/dL Albumin/Globulin Ratio 1.4 (1.0-2.8) MDM Narrative Medical decision making narrative: Patient brought in by ambulance for ground level fall. Patient is on Pradaxa. However did not hit her head. Complains of only left hip pain. It is shortened and externally rotated with the left leg. Patient in no distress. Primary care is Dr. Webster. No prior history of left hip surgery. No numbness tingling or weakness. Patient states she was taking out the garbage and tripped and fell. MDM After history and exam, morphine Zofran CBC CMP PT INR PTT x-ray left hip and pelvis Differential considered: Includes but not limited to hip fracture pelvic fracture/contusion Medical records reviewed: No recent visit for this complaint Lab Test results independently reviewed as above. Pertinent findings: WBC 14.3 hemoglobin 14 INR 1.2 sodium 131 potassium 3.7 BUN 17 creatinine 0.5 Imaging studies independently reviewed: X-ray left hip with pelvis, acetabular fracture Consultations: 4:49 p.m.. Spoke with orthopedics on-call for our hospital, Dr. Roberts, has reviewed x-ray imaging recommends transfer for acetabular fracture that we do not repair here. 5:50 p.m.. I spoke with [facility], Dr. Lloyd, who will accept patient to their [facility]. Re-evaluations: 5:00 p.m.. Updated patient results and will need transfer for complicated pelvic fracture/acetabular fracture. Discussion: Appropriate for transfer for higher level of care, orthopedics has been consulted. Diagnosis: Left acetabular fracture Discharge Plan Departure Patient Disposition: [facility] Clinical Impression: Acetabulum fracture, left Qualifiers: Encounter type: initial encounter Sublocation of acetabulum: unspecified portion of acetabulum Fracture type: closed Fracture alignment: displaced Qualified Code(s): S32.402A - Unspecified fracture of left acetabulum, initial encounter for closed fracture Prescriptions: No Action latanoprost 0.005 % drops EYE-RIGHT fluorouracil 5 % cream 1 applic topical BID timolol maleate 0.5 % drops EYE-BOTH Fish Oil 1,000 mg PO QDAY Qty: 0 dabigatran etexilate [Pradaxa] 150 mg capsule 150 mg PO BID Qty: 180 3RF pregabalin 50 mg capsule 50 mg PO BID Qty: 90 2RF metoprolol succinate 25 mg tablet extended release 24 hr See Rx Instructions .ROUTE .COMPLEX Qty: 90 1RF Dose Instruction: Take 1 tablet (25mg) by mouth every day Rx Instructions: Take 1 tablet (25mg) by mouth every day. Extended prescription due to travel outside of country, vacation override. temazepam 15 mg capsule 30 mg PO BID PRN (Reason: anxiety) Qty: 60 3RF atorvastatin 10 mg tablet See Rx Instructions .ROUTE .COMPLEX Qty: 180 1RF Dose Instruction: Take 1 tablet (10mg) by mouth at bedtime Rx Instructions: Take 1 tablet (10mg) by mouth at bedtime. Extended prescription due to travel outside of country, vacation override. hydrochlorothiazide 25 mg tablet 25 mg PO DAILY Qty: 180 1RF Rx Instructions: Extended prescription due to travel outside of country, vacation override. Referrals: Elma Webster MD [Primary Care Provider, Family Practice]
--- NOTE | 2025-03-30 16:46 | DI.CT.S_ITS ---
PROCEDURE: CT PEL WO CON INDICATIONS: Fall/left side pain TECHNIQUE: Noncontrast 3 mm axial sections acquired through the bony pelvis, with coronal and sagittal reformatting. COMPARISON: [facility], CR, XR HIP W PEL LT 2V, 03/30/2025, 16:17. FINDINGS: Image quality: Diagnostic Bones: Moderately comminuted 2 column fracture of the left acetabulum, with fracture fragments extending superiorly. Mildly displaced and comminuted left pubic root and left inferior pubic fractures also seen. Mildly displaced fracture of the right superior pubic ring. Suspect minimally displaced fracture of the left sacral ala and left L5 transverse process No pubic diastasis. Soft tissues: Diffuse sub peritoneal hematoma, greater on the right. Consider CT angiogram to excess for extravasation if clinically indicated. Under distended urinary bladder. IMPRESSION: Complex pelvic and lumbosacral fractures as described above. Moderate sub peritoneal hematoma greater on the right. Multiphase CT angiogram could assess for extravasation if clinically needed. Under distended urinary bladder. CT cystogram could evaluate if there is hematuria. Dictated by: Greyson Still M.D. on 03/30/2025 at 18:17 Approved by: Greyson Still M.D. on 03/30/2025 at 18:21
[2025-03-30] MEDS: MORPHINE 4 MG/ML INJ IV (17:10)
[2025-03-30] MEDS: ONDANSETRON 4 MG/2 ML INJ IV (17:10)
[2025-03-30 17:21] LABS: Add Manual Diff / Slide Review NO; Hematocrit 41.1 % (36-46); Hemoglobin 14.0 g/dL (12.0-16.0); Lymphocytes Absolute Auto 700 /uL (1100-4500); Mean Corpuscular HGB Conc 34.1 % (30-36); Mean Corpuscular Hemoglobin 32.8 PG (26-34); Mean Corpuscular Volume 96.1 fL (80-100); Platelet Count 276 X10^3/uL (150-400)
[2025-03-30 17:33] LABS: INR 1.2 (0.9-1.3); Prothrombin Time 14.0 SECONDS (9.4-12.5)
[2025-03-30 17:35] LABS: PTT Partial Thromboplastin Tim 41 SECONDS (25.1-36.5)
[2025-03-30 17:38] LABS: Alanine Aminotransferase 37 IU/L (<35); Albumin 4.2 g/dL (3.5-5.0); Albumin Globulin Ratio 1.4 (1.0-2.8); Alkaline Phosphatase 135 U/L (38-126); Blood Urea Nitrogen 17 mg/dL (7-17); Calcium 9.4 mg/dL (8.4-10.2); Carbon Dioxide 28 mmol/L (22-32); Chloride 95 mmol/L (98-107); Estimated Glomerular Filt Rate > 60 mL/min (>60); Globulin 2.9 g/dL (1.7-4.1); Glucose 131 mg/dL (70-99); HEMOLYSIS < 15 (0-50); Potassium 3.7 mmol/L (3.4-5.1); Sodium 131 mmol/L (137-145); Total Protein 7.1 g/dL (6.3-8.2)
[2025-03-30 19:05] VITALS: BP 84/46; PULSE 80; RESP 16; O2SAT 99
[2025-03-30] MEDS: SODIUM CHLORIDE 0.9% 1,000 ML 1000 ML IV (19:13)
[2025-03-30 19:15] VITALS: BP 64/37; PULSE 98; RESP 16; O2SAT 98
[2025-03-30 19:25] VITALS: BP 98/61; PULSE 106; RESP 16; O2SAT 96
[2025-03-30 19:50] VITALS: BP 103/59; PULSE 93; RESP 16; O2SAT 99
== END 2025-03-30 20:40 | disposition short-term general hospital (02) ==
PROVIDERS: Emergency Provider Emergency Medicine; PCP Family Medicine
DX: S32.402A Unspecified fracture of left acetabulum, initial encounter for closed fracture (principal); W18.30XA Fall on same level, unspecified, initial encounter; Z79.01 Long term (current) use of anticoagulants
CPT/HCPCS: 36415; 72192; 73502; 80053; 85025; 85610; 85730; 96374; 96375; 99284; J2272; J2405; J7030